=== PATIENT | male | born 1980 | race Hispanic/Latino ===

== ENCOUNTER 2018-04-24 09:23 | Inpatient (IN) | payer OTHER ==
[~2018-04-24] VITALS: Ht 175.3 cm; Wt 86.2 kg
[2018-04-24 10:41] LABS: BASOPHILS % (AUTO) 0.4 % (0.0-5.0); EOSINOPHILS % (AUTO) 0.8 % (0.0-8.0); HEMATOCRIT 49.2 % (42-54); LYMPHOCYTES % (AUTO) 16.2 % (21.0-51.0); MEAN CORPUSCULAR HEMOGLOBIN 31.7 pg (27.0-33.0); MEAN CORPUSCULAR HGB CONC 34.3 g/dL (32.0-36.0); MEAN CORPUSCULAR VOLUME 92.2 fL (79-99); MONOCYTES % (AUTO) 5.9 % (3.0-13.0); NEUTROPHILS % (AUTO) 76.7 % (40.0-77.0); PLATELET COUNT (AUTO) 260 K/uL (130-400); RED BLOOD CELL COUNT(AUTO) 5.34 MIL/uL (4.50-6.20); RED CELL DISTRIBUTION WIDTH 12.8 % (11.0-15.5)
[2018-04-24 10:43] LABS: APPEARANCE,URINE Cloudy (CLEAR); BILIRUBIN,URINE Negative (NEGATIVE); COLOR,URINE Yellow (YELLOW); GLUCOSE, URINE (UA) Negative (NEGATIVE); KETONES,URINE Negative (NEGATIVE); LEUKOCYTE ESTERASE ,URINE Negative (NEGATIVE); NITRATE,URINE Negative (NEGATIVE); OCCULT BLOOD,URINE Negative (NEGATIVE); PH,URINE 6.5 (5.0-8.0); PROTEIN,URINE POS 2+ (NEGATIVE); UROBILINOGEN,URINE 0.2 mg/dL (0.2-1.0)
[2018-04-24 10:52] LABS: CREATININE 1.5 mg/dL (0.5-1.5); POTASSIUM 3.7 mmol/L (3.5-5.1)
[2018-04-24 10:56] LABS: ALBUMIN 3.4 g/dL (3.5-5.0); BILIRUBIN,DIRECT 0.1 mg/dL (0.0-0.3); BILIRUBIN,TOTAL 0.4 mg/dL (0.2-1.0); TOTAL PROTEIN, SERUM 7.4 g/dL (6.0-8.3)
[2018-04-24 11:55] LABS: BACTERIA,URINE None Seen /HPF (None Seen); RBC,URINE None Seen /HPF (0-1); SQUAMOUS EPITHELIAL CELL,UR Rare /HPF (0-2); WBC,URINE None Seen /HPF (0-1)
[2018-04-24] MEDS ORDERED: BISACODYL 10 MG SUPP.RECT RC ONE (12:10)
[2018-04-24] MEDS ORDERED: KETOROLAC TROMETHAMINE 30MG/ML ONE (14:33)
[2018-04-24] MEDS ORDERED: SODIUM CHLORIDE 0.9% 1000ML 1,000 ML IV ONE (15:16)
[2018-04-24] MEDS: SODIUM CHLORIDE 0.9% 1000ML 1,000 ML IV SCH (15:41)
[2018-04-24] MEDS ORDERED: ONDANSETRON HCL MDV 20ML 2 MG/ML VIAL IVP PRN (16:30)
[2018-04-24 16:40] VITALS: BP 124/82
[2018-04-24 16:49] LABS: CREATININE 1.5 mg/dL (0.5-1.5); POTASSIUM 3.4 mmol/L (3.5-5.1)
--- NOTE | 2018-04-24 17:00 | NUR ---
ADMISSION PATIENT ADMITTED TO ROOM 317. VITALS SIGNS WNL. AAOX3. ASSESSMENT DONE AND DOCUMENTED. PATIENT C/O ABDOMINAL PAIN. MEDICATED FOR PAIN PER MARS. WILL CONTINUE TO MONITOR.
[2018-04-24] MEDS: MORPHINE SULFATE 4 MG/1ML SYG IV PRN ×2 (18:10→22:23)
[2018-04-24 19:20] VITALS: BP 121/72
[2018-04-24] MEDS: FAMOTIDINE/PF 20 MG/2 ML VIAL IV SCH (22:23)
[2018-04-24] MEDS: ZOSYN 3.375GM+NS 50ML 50 ML IV SCH (22:23)
[2018-04-24 22:34] LABS: AMPHET/METH SCREEN,URINE NEGATIVE (NEGATIVE); BARBITURATE SCREEN, URINE NEGATIVE (NEGATIVE); BENZODIAZEPINES SCREEN,URINE NEGATIVE (NEGATIVE); CANNABINOID SCREEN,URINE NEGATIVE (NEGATIVE); COCAINE SCREEN,URINE POSITIVE (NEGATIVE); OPIATE SCREEN,URINE NEGATIVE (NEGATIVE); PHENCYCLIDINE SCREEN,URINE NEGATIVE (NEGATIVE)
[2018-04-24 23:42] VITALS: BP 106/73
[2018-04-25 03:27] LABS: HEMATOCRIT 42.9 % (42-54); MEAN CORPUSCULAR HEMOGLOBIN 31.5 pg (27.0-33.0); MEAN CORPUSCULAR HGB CONC 34.2 g/dL (32.0-36.0); MEAN CORPUSCULAR VOLUME 92.1 fL (79-99); NUCLEATED RED BLOOD CELLS 0.1 % (0.0-0.19); PLATELET COUNT (AUTO) 224 K/uL (130-400); RED BLOOD CELL COUNT(AUTO) 4.66 MIL/uL (4.50-6.20); RED CELL DISTRIBUTION WIDTH 12.9 % (11.0-15.5)
[2018-04-25 03:46] LABS: CREATININE 1.8 mg/dL (0.5-1.5); POTASSIUM 3.8 mmol/L (3.5-5.1)
[2018-04-25 04:25] VITALS: BP 108/74
[2018-04-25 08:00] VITALS: BP 105/68
[2018-04-25] MEDS: ZOSYN 3.375GM+NS 50ML 50 ML IV SCH ×2 (09:56→18:03)
[2018-04-25] MEDS: FAMOTIDINE/PF 20 MG/2 ML VIAL IV SCH ×2 (10:19→22:32)
[2018-04-25] MEDS: MORPHINE SULFATE 4 MG/1ML SYG IV PRN ×3 (10:19→22:33)
[2018-04-25 10:28] LABS: CREATININE 1.6 mg/dL (0.5-1.5); POTASSIUM 3.9 mmol/L (3.5-5.1)
[2018-04-25 12:00] VITALS: BP 100/58
[2018-04-25 16:00] VITALS: BP 118/73
[2018-04-25 16:02] LABS: CREATININE 1.7 mg/dL (0.5-1.5); POTASSIUM 3.9 mmol/L (3.5-5.1)
[2018-04-25 19:20] VITALS: BP 110/66
[2018-04-25 21:54] LABS: CREATININE 1.7 mg/dL (0.5-1.5); POTASSIUM 3.9 mmol/L (3.5-5.1)
[2018-04-25] MEDS: SODIUM CHLORIDE 0.9% 1000ML 1,000 ML IV SCH (22:32)
[2018-04-26 00:30] VITALS: BP 111/67
[2018-04-26] MEDS: ZOSYN 3.375GM+NS 50ML 50 ML IV SCH ×3 (03:04→18:08)
[2018-04-26] MEDS: SODIUM CHLORIDE 0.9% 1000ML 1,000 ML IV SCH ×2 (03:05→22:24)
[2018-04-26 04:28] VITALS: BP 103/68
[2018-04-26 05:51] LABS: BASOPHILS % (AUTO) 0.3 % (0.0-5.0); EOSINOPHILS % (AUTO) 1.9 % (0.0-8.0); HEMATOCRIT 41.7 % (42-54); LYMPHOCYTES % (AUTO) 25.4 % (21.0-51.0); MEAN CORPUSCULAR HEMOGLOBIN 32.5 pg (27.0-33.0); MEAN CORPUSCULAR HGB CONC 34.7 g/dL (32.0-36.0); MEAN CORPUSCULAR VOLUME 93.5 fL (79-99); MONOCYTES % (AUTO) 7.9 % (3.0-13.0); NEUTROPHILS % (AUTO) 64.5 % (40.0-77.0); PLATELET COUNT (AUTO) 260 K/uL (130-400); RED BLOOD CELL COUNT(AUTO) 4.46 MIL/uL (4.50-6.20); RED CELL DISTRIBUTION WIDTH 12.7 % (11.0-15.5); WHITE BLOOD COUNT (AUTO) 7.9 K/uL (4.8-10.8)
[2018-04-26 05:57] LABS: CREATININE 1.6 mg/dL (0.5-1.5); POTASSIUM 3.7 mmol/L (3.5-5.1)
[2018-04-26 08:00] VITALS: BP 113/65
[2018-04-26] MEDS: KETOROLAC TROMETHAMINE 15MG/ML IV PRN ×2 (09:01→22:16)
[2018-04-26] MEDS: FAMOTIDINE/PF 20 MG/2 ML VIAL IV SCH ×2 (09:05→22:15)
[2018-04-26 09:59] LABS: CREATININE 1.6 mg/dL (0.5-1.5); POTASSIUM 3.8 mmol/L (3.5-5.1)
[2018-04-26 12:00] VITALS: BP 103/67
[2018-04-26 16:00] VITALS: BP 121/69
[2018-04-26 16:26] LABS: CREATININE 1.7 mg/dL (0.5-1.5); POTASSIUM 3.7 mmol/L (3.5-5.1)
[2018-04-26] MEDS ORDERED: LACTULOSE 20 GM/30 ML UDCUP PO PRN (16:45)
[2018-04-26 20:00] VITALS: BP 116/80
[2018-04-26 22:21] LABS: CREATININE 1.7 mg/dL (0.5-1.5); POTASSIUM 3.7 mmol/L (3.5-5.1)
[2018-04-27] VITALS: BP 114/76
[2018-04-27] MEDS: ZOSYN 3.375GM+NS 50ML 50 ML IV SCH ×3 (02:53→17:14)
[2018-04-27] MEDS: SODIUM CHLORIDE 0.9% 1000ML 1,000 ML IV SCH ×3 (03:41→17:13)
[2018-04-27 04:00] VITALS: BP 100/68
[2018-04-27 05:21] LABS: BASOPHILS % (AUTO) 0.3 % (0.0-5.0); EOSINOPHILS % (AUTO) 2.6 % (0.0-8.0); HEMATOCRIT 40.3 % (42-54); LYMPHOCYTES % (AUTO) 32.2 % (21.0-51.0); MEAN CORPUSCULAR HGB CONC 33.4 g/dL (32.0-36.0); MEAN CORPUSCULAR VOLUME 92.8 fL (79-99); MONOCYTES % (AUTO) 7.6 % (3.0-13.0); NEUTROPHILS % (AUTO) 57.3 % (40.0-77.0); PLATELET COUNT (AUTO) 217 K/uL (130-400); RED BLOOD CELL COUNT(AUTO) 4.35 MIL/uL (4.50-6.20); RED CELL DISTRIBUTION WIDTH 12.7 % (11.0-15.5); WHITE BLOOD COUNT (AUTO) 7.5 K/uL (4.8-10.8)
[2018-04-27] MEDS ORDERED: BISACODYL 10 MG SUPP.RECT RC SCH (08:30)
[2018-04-27] MEDS: FAMOTIDINE/PF 20 MG/2 ML VIAL IV SCH ×2 (08:32→21:48)
[2018-04-27 09:22] VITALS: BP 114/76
[2018-04-27 12:42] VITALS: BP 115/73
[2018-04-27 16:30] VITALS: BP 126/88
--- NOTE | 2018-04-27 18:00 | NUR ---
DR. YUAN HERE TO SEE PATIENT . CONTINUE NPO UNTIL DR. YUAN ASSESSES PATIENT TOMORROW.
[2018-04-27 20:00] VITALS: BP 120/75
[2018-04-27] MEDS: KETOROLAC TROMETHAMINE 15MG/ML IV PRN (21:48)
[2018-04-28] VITALS (7 sets, daily range): BP systolic 113–141; BP diastolic 64–95
[2018-04-28] MEDS: SODIUM CHLORIDE 0.9% 1000ML 1,000 ML IV SCH ×3 (01:02→09:44)
[2018-04-28] MEDS: ZOSYN 3.375GM+NS 50ML 50 ML IV SCH ×3 (02:15→16:32)
[2018-04-28 05:06] LABS: BASOPHILS % (AUTO) 0.6 % (0.0-5.0); EOSINOPHILS % (AUTO) 1.6 % (0.0-8.0); HEMATOCRIT 39.9 % (42-54); LYMPHOCYTES % (AUTO) 29.2 % (21.0-51.0); MEAN CORPUSCULAR HGB CONC 34.7 g/dL (32.0-36.0); MEAN CORPUSCULAR VOLUME 92.4 fL (79-99); MONOCYTES % (AUTO) 5.5 % (3.0-13.0); NEUTROPHILS % (AUTO) 63.1 % (40.0-77.0); PLATELET COUNT (AUTO) 267 K/uL (130-400); RED BLOOD CELL COUNT(AUTO) 4.32 MIL/uL (4.50-6.20); RED CELL DISTRIBUTION WIDTH 12.6 % (11.0-15.5); WHITE BLOOD COUNT (AUTO) 7.9 K/uL (4.8-10.8)
[2018-04-28 05:16] LABS: CREATININE 1.6 mg/dL (0.5-1.5); POTASSIUM 3.7 mmol/L (3.5-5.1)
[2018-04-28] MEDS: FAMOTIDINE/PF 20 MG/2 ML VIAL IV SCH ×2 (09:23→20:13)
[2018-04-28] MEDS ORDERED: DEXTROSE 5 % AND 0.9 % NACL 1,000 ML IV ONE (13:36)
[2018-04-28] MEDS: DEXTROSE 5%-WATER 1,000 ML IV SCH ×2 (16:31→20:13)
[2018-04-29] MEDS: ZOSYN 3.375GM+NS 50ML 50 ML IV SCH ×3 (01:55→18:00)
[2018-04-29 04:10] VITALS: BP 135/73
[2018-04-29 05:03] LABS: BASOPHILS % (AUTO) 0.4 % (0.0-5.0); EOSINOPHILS % (AUTO) 2.2 % (0.0-8.0); HEMATOCRIT 42.4 % (42-54); LYMPHOCYTES % (AUTO) 25.1 % (21.0-51.0); MEAN CORPUSCULAR HEMOGLOBIN 31.1 pg (27.0-33.0); MEAN CORPUSCULAR HGB CONC 34.1 g/dL (32.0-36.0); MEAN CORPUSCULAR VOLUME 91.2 fL (79-99); MONOCYTES % (AUTO) 6.4 % (3.0-13.0); NEUTROPHILS % (AUTO) 65.9 % (40.0-77.0); PLATELET COUNT (AUTO) 251 K/uL (130-400); RED BLOOD CELL COUNT(AUTO) 4.65 MIL/uL (4.50-6.20); RED CELL DISTRIBUTION WIDTH 12.6 % (11.0-15.5); WHITE BLOOD COUNT (AUTO) 8.5 K/uL (4.8-10.8)
[2018-04-29 05:25] LABS: CREATININE 1.5 mg/dL (0.5-1.5); POTASSIUM 3.3 mmol/L (3.5-5.1)
[2018-04-29 08:00] VITALS: BP 125/76
[2018-04-29] MEDS: DEXTROSE 5%-WATER 1,000 ML IV SCH (08:56)
[2018-04-29] MEDS: FAMOTIDINE/PF 20 MG/2 ML VIAL IV SCH ×2 (08:56→20:59)
[2018-04-29] MEDS ORDERED: DIATR MEGLU/DIATRIZOATE SODIUM 30 ML BOTTLE ONE (09:02)
[2018-04-29] MEDS: KETOROLAC TROMETHAMINE 15MG/ML IV PRN (09:23)
[2018-04-29 12:00] VITALS: BP 133/75
[2018-04-29] MEDS: SODIUM CHLORIDE 0.9% 1000ML 1,000 ML IV SCH ×2 (13:17→17:20)
[2018-04-29 16:00] VITALS: BP 149/90
--- NOTE | 2018-04-29 16:00 | NUR ---
DR. YUAN AT BEDSIDE, GI CONSULT DR. KNAPP AWARE OF CONSULT BY DR. YUAN, RE; POSSIBLE CECAL MASS.
--- NOTE | 2018-04-29 18:44 | NUR ---
ZOSYN STARTED LATE DUE TO 4HRS OF ONLY NS HYDRATION POST CT WITH IV CONT. ORDERED BY HOSPITALIST.
--- NOTE | 2018-04-29 19:10 | NUR ---
UP IN HALLWAY WALKING WITH .NO DISTRESS NOTED.REMAINS ON STRICT NPO AT THIS TIME
[2018-04-29 19:55] VITALS: BP 114/80
--- NOTE | 2018-04-29 20:30 | NUR ---
REMAINS COMFORTABLE AT THIS TIME.NO DISTRESS NOTED .IV OF N/S AT 100CC/HR INFUSING VIA LEFT A/C WITHOUT DIFFICULTY
--- NOTE | 2018-04-29 23:05 | NUR ---
RESTING ON RT SIDE WITH AT BEDSIDE.REMAINS NPO.NO NAUSEA OR VOMITING OR ABDOMINAL PAIN REPORTED
[2018-04-29 23:10] VITALS: BP 129/78
[2018-04-30] MEDS: ZOSYN 3.375GM+NS 50ML 50 ML IV SCH ×2 (02:36→10:38)
[2018-04-30] MEDS: SODIUM CHLORIDE 0.9% 1000ML 1,000 ML IV SCH ×3 (02:38→19:24)
[2018-04-30 04:00] VITALS: BP 106/69
[2018-04-30 08:00] VITALS: BP 116/70
[2018-04-30] MEDS ORDERED: SIMETHICONE 40 MG/0.6 ML ML PO PRN (10:30)
[2018-04-30] MEDS: FAMOTIDINE/PF 20 MG/2 ML VIAL IV SCH ×2 (10:38→22:09)
[2018-04-30 12:00] VITALS: BP 127/76
[2018-04-30] MEDS: CEFTRIAXONE SODIUM 1 GM IVP SCH (12:40)
[2018-04-30] MEDS: METOCLOPRAMIDE 10 MG/2 ML VIAL IVP SCH ×2 (12:41→22:09)
[2018-04-30] MEDS: METRONIDAZOLE 500MG/100ML BAG 100 ML IV SCH ×2 (12:41→19:24)
[2018-04-30 16:00] VITALS: BP 110/75
[2018-04-30 19:54] VITALS: BP 128/82
[2018-04-30 23:58] VITALS: BP 111/72
[2018-05-01] MEDS: METRONIDAZOLE 500MG/100ML BAG 100 ML IV SCH ×5 (00:40→23:28)
[2018-05-01 03:51] VITALS: BP 108/61
[2018-05-01] MEDS: SODIUM CHLORIDE 0.9% 1000ML 1,000 ML IV SCH ×3 (05:56→18:49)
[2018-05-01 08:13] VITALS: BP 107/61
[2018-05-01] MEDS ORDERED: DIATR MEGLU/DIATRIZOATE SODIUM 30 ML BOTTLE ONE (08:59)
[2018-05-01] MEDS: METOCLOPRAMIDE 10 MG/2 ML VIAL IVP SCH ×2 (09:11→20:36)
[2018-05-01] MEDS: FAMOTIDINE/PF 20 MG/2 ML VIAL IV SCH ×2 (09:11→20:36)
[2018-05-01] MEDS ORDERED: IOHEXOL 350 MG/ML 100ML INFUS..BTL IV ONE (11:10)
[2018-05-01] MEDS: CEFTRIAXONE SODIUM 1 GM IVP SCH (11:43)
[2018-05-01 12:00] VITALS: BP 112/80
[2018-05-01 16:00] VITALS: BP 117/76
[2018-05-01 20:36] VITALS: BP 109/58
[2018-05-02 01:23] VITALS: BP 107/62
[2018-05-02 04:52] VITALS: BP 106/68
[2018-05-02] MEDS: SODIUM CHLORIDE 0.9% 1000ML 1,000 ML IV SCH ×2 (05:47→10:30)
[2018-05-02] MEDS: METRONIDAZOLE 500MG/100ML BAG 100 ML IV SCH ×3 (05:47→18:39)
[2018-05-02 06:02] LABS: BASOPHILS % (AUTO) 0.4 % (0.0-5.0); EOSINOPHILS % (AUTO) 1.5 % (0.0-8.0); HEMATOCRIT 42.5 % (42-54); LYMPHOCYTES % (AUTO) 24.4 % (21.0-51.0); MEAN CORPUSCULAR HGB CONC 34.9 g/dL (32.0-36.0); MEAN CORPUSCULAR VOLUME 91.7 fL (79-99); MONOCYTES % (AUTO) 6.3 % (3.0-13.0); NEUTROPHILS % (AUTO) 67.4 % (40.0-77.0); PLATELET COUNT (AUTO) 264 K/uL (130-400); RED BLOOD CELL COUNT(AUTO) 4.63 MIL/uL (4.50-6.20); RED CELL DISTRIBUTION WIDTH 12.8 % (11.0-15.5)
[2018-05-02 06:19] LABS: CREATININE 1.5 mg/dL (0.5-1.5); POTASSIUM 3.6 mmol/L (3.5-5.1)
[2018-05-02 08:00] VITALS: BP 109/64
[2018-05-02] MEDS: CEFTRIAXONE SODIUM 1 GM IVP SCH (08:01)
[2018-05-02] MEDS: FAMOTIDINE/PF 20 MG/2 ML VIAL IV SCH ×2 (08:01→21:27)
[2018-05-02] MEDS: METOCLOPRAMIDE 10 MG/2 ML VIAL IVP SCH ×2 (08:01→21:27)
[2018-05-02 12:00] VITALS: BP 106/64
[2018-05-02 16:00] VITALS: BP 110/67
--- NOTE | 2018-05-02 18:00 | NUR ---
DR. YUAN STATES MAY RESUME CLEARS, D/C TOMORROW IF TOLERATING DIET, F/U 1 WEEK.
[2018-05-02 20:00] VITALS: BP 103/65
[2018-05-03] VITALS: BP 115/66
[2018-05-03] MEDS: METRONIDAZOLE 500MG/100ML BAG 100 ML IV SCH ×2 (00:19→05:26)
[2018-05-03 04:00] VITALS: BP 94/59
[2018-05-03 06:09] LABS: BASOPHILS % (AUTO) 0.5 % (0.0-5.0); HEMATOCRIT 44.4 % (42-54); LYMPHOCYTES % (AUTO) 26.6 % (21.0-51.0); MEAN CORPUSCULAR HGB CONC 33.6 g/dL (32.0-36.0); MEAN CORPUSCULAR VOLUME 92.3 fL (79-99); MONOCYTES % (AUTO) 7.8 % (3.0-13.0); NEUTROPHILS % (AUTO) 63.1 % (40.0-77.0); NUCLEATED RED BLOOD CELLS 0.1 % (0.0-0.19); PLATELET COUNT (AUTO) 241 K/uL (130-400); RED BLOOD CELL COUNT(AUTO) 4.81 MIL/uL (4.50-6.20); RED CELL DISTRIBUTION WIDTH 12.8 % (11.0-15.5); WHITE BLOOD COUNT (AUTO) 7.7 K/uL (4.8-10.8)
[2018-05-03 06:23] LABS: ALBUMIN 3.2 g/dL (3.5-5.0); BILIRUBIN,TOTAL 0.6 mg/dL (0.2-1.0); CREATININE 1.6 mg/dL (0.5-1.5); POTASSIUM 3.9 mmol/L (3.5-5.1); TOTAL PROTEIN, SERUM 6.9 g/dL (6.0-8.3)
[2018-05-03 08:00] VITALS: BP 114/68
[2018-05-03] MEDS ORDERED: LEVO500T2 PO (09:28)
[2018-05-03] MEDS ORDERED: TYL3 PO (09:28)
[2018-05-03] MEDS ORDERED: METR500T PO (09:28)
[2018-05-03] MEDS: METOCLOPRAMIDE 10 MG/2 ML VIAL IVP SCH (09:30)
[2018-05-03] MEDS: FAMOTIDINE/PF 20 MG/2 ML VIAL IV SCH (09:30)
--- NOTE | 2018-05-03 13:00 | NUR ---
Dietary education materials provided upon patient request. Education provided with Romansh translation with RN. Patient received materials. Patient was engaged and asked pertinent questions. Handout and reference materials provided. Patient to remain no clear liquids x4-5days and after follow-up with surgeon and GE specialist. Addendum: 05/03/18 at [address] Amended: Links added.
--- NOTE | 2018-05-03 14:10 | NUR ---
patient discharged home using teach back technique re; new meds, home meds, s/s to watch for and when to call md or 911. aox3, iv out intact, no tele, denies any questions. Follow Up With Primary doctor in 1 week, list of primary doctor will be provided to you at discharge. Follow Up With Automobile Appraiser on 05/11/2018 at 2:45pm, for future plans for a colonoscopy after inflammations resolves and treatment of antibiotics is complete. Address; [address] [place] [address], [id number]. call if unable to attend appointment to reschedule. Follow up with surgeon Dr. Aguila 05/09/2018 2:15pm, for follow up of diverticulitis, colitis and abdominal pain symptoms. Address: [address] [place] [address], [facility], [address]. call if unable to attend appointment at phone; [phone]. call your primary doctor if abdominal pain reoccurs. call 911 if unable shortness of breath or chest pain does not resolve with rest. take full course of antibiotic treatment until complete, to prevent super infections. continue a clear liquid diet for 4-5 days. And may resume diet after cleared by your surgeon or logistics planning engineer after your appointments.
--- NOTE | 2018-05-03 14:43 | NUR ---
RDSCREEN - LOS X 9 Patient with Colitis. Patient to remain on clear liquids x4-5 days after follow-up with surgeon and Title Investigator as per RN. Patient LBM 05/02/18. Patient provided with materials on dietary recommendations for Inflammatory Bowel Disease with Guyanese translation. Patient monitored labs: GFR 52, Alb 3.2; all other labs WNL. RD to continue to monitor. Please notify RD as nutritional concerns arise. Thank you. Addendum: 05/03/18 at [address] Amended: Links added.
== END 2018-05-03 14:17 | disposition home or self-care (01) | DRG 391 ==
LOC: EDH 09:23 → 3CH 09:24 → OBSVTOIN 09:24
PROVIDERS: ADMIT Hospitalist; ATTEND Hospitalist
DX: K57.92 Diverticulitis of intestine, part unspecified, without perforation or abscess without bleeding (principal); N17.0 Acute kidney failure with tubular necrosis; E86.0 Dehydration; K52.9 Noninfective gastroenteritis and colitis, unspecified; F14.10 Cocaine abuse, uncomplicated; F17.210 Nicotine dependence, cigarettes, uncomplicated; K59.00 Constipation, unspecified; Z83.3 Family history of diabetes mellitus; Z82.49 Family history of ischemic heart disease and other diseases of the circulatory system
CPT/HCPCS: 36415; 74021; 74176; 74178; 80048; 80053; 80076; 80305; 81001; 82378; 83690; 85025; 85027; 87040; 87507; A4218; G0378; J0696; J1885; J2270; J2543; J2765; J3490; J7030; J7042; J7070; Q9963; Q9967

== ENCOUNTER → 2018-10-18 | Outpatient (CLI) | payer OTHER ==
[~2018-10-18] MED LIST: LEVO500T2 PO; METR500T PO; TYL3 PO
== END | disposition home or self-care (01) ==
LOC: LAB 10-14 13:07
PROVIDERS: ATTEND Internal Medicine Gastroenterology
DX: K52.9 Noninfective gastroenteritis and colitis, unspecified (principal)
CPT/HCPCS: 87507